=== PATIENT | male | born 1965 | race Caucasian/White ===

== ENCOUNTER 2023-10-03 10:40 | Observation (INO) | payer BC ==
[2023-10-03 11:16] LABS: #Basophils 0.1 thou/uL (0.0-0.2); #Eosinphils 0.1 thou/uL (0.0-0.7); #Monocytes 0.6 thou/uL (0.11-0.59); #Neutrophils 3.4 thou/uL (1.40-6.50); %Basophils 1.6 % (0.0-1.0); %Eosinophils 1.3 % (0.0-10.0); %Lymphocytes 34.8 % (21.0-51.0); %Monocytes 9.6 % (0.0-10.0); %Neutrophils 52.4 % (42.0-75.0); Hematocrit 40.2 % (42.0-52.0); Hemoglobin 14.3 g/dL (14.0-18.0); Mean Corpuscular HGB CONC 35.6 g/dL (32.0-36.0); Mean Corpuscular Hemoglobin 32.9 pg (27.0-31.0); Mean Corpuscular Volume 92.6 fl (78.0-98.0); Mean Platelet Volume 9.7 fL (7.4-10.4); Platelet Count 156 10x3/uL (130-400); Red Blood Cell (RBC) Count 4.34 mill/uL (4.70-6.10); White Blood Cell (WBC) Count 6.4 10x3/uL (4.8-10.8)
[2023-10-03 11:40] LABS: ALT (SGPT) 41 U/L (8-55); AST (SGOT) 51 U/L (5-34); Albumin 3.5 g/dL (3.5-5.0); Alkaline Phosphatase 55 U/L (40-110); Anion Gap 19 mmol/L (10-20); BUN (Urea Nitrogen) 5 mg/dL (8.4-25.7); Calc. Creatinine Clearance 0 mL/min (70-130); Calcium 7.6 mg/dL (7.8-10.44); Carbon Dioxide 18 mmol/L (22-29); Chloride 95 mmol/L (98-107); Estimated GFR 105; Globulin 3.1 g/dL (2.4-3.5); Glucose 91 mg/dL (70-105); Magnesium 1.8 mg/dL (1.6-2.6); Protein, Total 6.6 g/dL (6.0-8.3); Sodium 129 mmol/L (136-145)
[2023-10-03 11:45] LABS: Troponin I Less than 0.010 ng/mL (< 0.028)
[2023-10-03] MEDS ORDERED: Potassium Chloride 20 MEQ TAB ONE (12:45)
[2023-10-03] MEDS ORDERED: Magnesium 2 GM/50 ML BAG (IN WATER) ONE (12:52)
[2023-10-03 14:34] LABS: Troponin I Less than 0.010 ng/mL (< 0.028)
[2023-10-03] MEDS ORDERED: Acetaminophen 325 MG TAB PO PRN (14:53)
[2023-10-03] MEDS ORDERED: Multivit, Therapeutic 1 TAB PO SCH (15:00)
[2023-10-03] MEDS ORDERED: Folic Acid 1 MG TAB PO SCH (15:00)
[2023-10-03] MEDS ORDERED: Sodium Chloride 0.9% 1,000 ML IV SCH (15:00)
[2023-10-03] MEDS ORDERED: Electrolyte Replacement Protocol 1 EACH FS SCH (15:00)
[2023-10-03] MEDS ORDERED: Electrolyte Replacement Protocol FS PRN (15:15)
[2023-10-03] MEDS: Thiamine HCl 200 MG/2 ML VIAL SLOW IVP SCH (16:01)
[2023-10-03] MEDS: Multivit, Therapeutic 1 TAB PO SCH (16:02)
[2023-10-03 16:38] LABS: Potassium 3.4 mmol/L (3.5-5.1)
[2023-10-03 16:49] LABS: Troponin I Less than 0.010 ng/mL (< 0.028)
[2023-10-03] MEDS ORDERED: Promethazine HCl 12.5 MG in Sodium Chloride 0.9% 50 ML IVPB PRN (16:50)
[2023-10-03 18:17] VITALS: BMI 25.4
[2023-10-03] MEDS ORDERED: hydrALAZINE 20 MG/ML VIAL SLOW IVP PRN ×2 (18:49→18:53)
[2023-10-03] MEDS ORDERED: Lorazepam 1 MG TAB PO PRN (21:05)
[2023-10-03] MEDS: Famotidine 20 MG TAB PO SCH (21:19)
[2023-10-03] MEDS ORDERED: Potassium Chloride 20 MEQ TAB PO SCH (21:30)
[2023-10-04 04:54] LABS: #Basophils 0.1 thou/uL (0.0-0.2); #Eosinphils 0.1 thou/uL (0.0-0.7); #Monocytes 0.8 thou/uL (0.11-0.59); #Neutrophils 4.4 thou/uL (1.40-6.50); %Basophils 1.2 % (0.0-1.0); %Eosinophils 1.3 % (0.0-10.0); %Lymphocytes 29.8 % (21.0-51.0); %Monocytes 9.8 % (0.0-10.0); %Neutrophils 57.6 % (42.0-75.0); Hematocrit 38.5 % (42.0-52.0); Hemoglobin 13.9 g/dL (14.0-18.0); Mean Corpuscular HGB CONC 36.1 g/dL (32.0-36.0); Mean Corpuscular Hemoglobin 33.3 pg (27.0-31.0); Mean Corpuscular Volume 92.1 fl (78.0-98.0); Mean Platelet Volume 10.5 fL (7.4-10.4); Platelet Count 142 10x3/uL (130-400); Red Blood Cell (RBC) Count 4.18 mill/uL (4.70-6.10); White Blood Cell (WBC) Count 7.7 10x3/uL (4.8-10.8)
[2023-10-04 04:57] LABS: Anion Gap 13 mmol/L (10-20); BUN (Urea Nitrogen) 5 mg/dL (8.4-25.7); Calc. Creatinine Clearance 118 mL/min (70-130); Carbon Dioxide 21 mmol/L (22-29); Chloride 98 mmol/L (98-107); Estimated GFR 106; Glucose 76 mg/dL (70-105); Magnesium 2.2 mg/dL (1.6-2.6); Sodium 128 mmol/L (136-145)
[2023-10-04] MEDS: Famotidine 20 MG TAB PO SCH ×2 (08:47→20:44)
[2023-10-04] MEDS: Multivit, Therapeutic 1 TAB PO SCH (08:48)
[2023-10-04] MEDS: Folic Acid 1 MG TAB PO SCH (08:48)
[2023-10-04] MEDS ORDERED: Losartan 25 MG TAB PO SCH (10:15)
[2023-10-04] MEDS ORDERED: chlordiazePOXIDE HCl 25 MG CAP PO SCH (11:00)
[2023-10-04 12:45] LABS: Phosphorus 1.6 mg/dL (2.3-4.7)
[2023-10-04 12:48] LABS: ALT (SGPT) 36 U/L (8-55); AST (SGOT) 40 U/L (5-34); Albumin 3.7 g/dL (3.5-5.0); Alkaline Phosphatase 64 U/L (40-110); Bilirubin, Direct 0.6 mg/dL (0.1-0.3); Bilirubin, Total 1.5 mg/dL (0.2-1.2); Protein, Total 6.9 g/dL (6.0-8.3)
[2023-10-04 13:07] LABS: HBSAg Index 0.18 S/CO (0-0.99); Hep B Surf Ag Non-Reactive S/CO (NonReactive); Hep C IgG Ab Non-Reactive S/CO (NonReactive)
[2023-10-04 13:09] LABS: Hep A IgM AB Non-Reactive S/CO (NonReactive); Hep A IgM S/CO 0.21 S/CO (0-0.79)
[2023-10-04 13:10] LABS: HBCM Index 0.08 S/CO (0-0.79); Hepatitis B Core IgM Abs Non-Reactive S/CO (NonReactive)
[2023-10-04] MEDS ORDERED: Lorazepam 1 MG TAB PO PRN (14:53)
[2023-10-04] MEDS: chlordiazePOXIDE HCl 25 MG CAP PO SCH ×2 (16:02→20:44)
[2023-10-04] MEDS: Thiamine HCl 200 MG/2 ML VIAL SLOW IVP SCH (16:02)
[2023-10-04] MEDS: PHOS-NAK 1 PKT PACK PO SCH ×2 (16:02→20:44)
[2023-10-05 05:28] LABS: #Basophils 0.1 thou/uL (0.0-0.2); #Eosinphils 0.3 thou/uL (0.0-0.7); #Monocytes 0.8 thou/uL (0.11-0.59); #Neutrophils 4.8 thou/uL (1.40-6.50); %Basophils 1.7 % (0.0-1.0); %Lymphocytes 28.9 % (21.0-51.0); %Neutrophils 57.3 % (42.0-75.0); Hematocrit 41.6 % (42.0-52.0); Hemoglobin 14.4 g/dL (14.0-18.0); Mean Corpuscular HGB CONC 34.6 g/dL (32.0-36.0); Mean Corpuscular Hemoglobin 32.1 pg (27.0-31.0); Mean Corpuscular Volume 92.9 fl (78.0-98.0); Mean Platelet Volume 10.9 fL (7.4-10.4); Platelet Count 135 10x3/uL (130-400); Red Blood Cell (RBC) Count 4.48 mill/uL (4.70-6.10); White Blood Cell (WBC) Count 8.3 10x3/uL (4.8-10.8)
[2023-10-05 06:00] LABS: ALT (SGPT) 39 U/L (8-55); AST (SGOT) 47 U/L (5-34); Albumin 3.8 g/dL (3.5-5.0); Alkaline Phosphatase 64 U/L (40-110); Anion Gap 17 mmol/L (10-20); BUN (Urea Nitrogen) 7 mg/dL (8.4-25.7); Bilirubin, Total 1.1 mg/dL (0.2-1.2); Calc. Creatinine Clearance 110 mL/min (70-130); Calcium 8.6 mg/dL (7.8-10.44); Carbon Dioxide 19 mmol/L (22-29); Chloride 99 mmol/L (98-107); Estimated GFR 104; Globulin 3.6 g/dL (2.4-3.5); Glucose 85 mg/dL (70-105); Magnesium 2.2 mg/dL (1.6-2.6); Phosphorus 2.8 mg/dL (2.3-4.7); Potassium 4.2 mmol/L (3.5-5.1); Protein, Total 7.4 g/dL (6.0-8.3); Sodium 131 mmol/L (136-145)
[2023-10-05 08:39] VITALS: TEMP 98.1
[2023-10-05] MEDS ORDERED: Losartan 25 MG TAB PO SCH (09:00)
[2023-10-05] MEDS: chlordiazePOXIDE HCl 25 MG CAP PO SCH (09:20)
[2023-10-05] MEDS: Folic Acid 1 MG TAB PO SCH (09:20)
[2023-10-05] MEDS: PHOS-NAK 1 PKT PACK PO SCH (09:21)
[2023-10-05] MEDS: Multivit, Therapeutic 1 TAB PO SCH (09:21)
[2023-10-05] MEDS: Famotidine 20 MG TAB PO SCH (09:21)
[2023-10-05 14:27] VITALS: BP 155/83
[2023-10-06] MEDS ORDERED: Thiamine 100 MG TAB PO SCH (09:00)
[2023-10-06] MEDS ORDERED: FLU VACC QS2023-24(6MOS UP)/PF 60 MCG/0.5 ML SYRINGE IM ONE (09:00)
== END 2023-10-05 11:45 | disposition home or self-care (01) ==
LOC: ERS 10:40 → 2SW 14:39
PROVIDERS: ADMIT Internal Medicine; ATTEND Internal Medicine
PROC: B246ZZZ Ultrasonography of Right and Left Heart (ICD-10-PCS; principal; 2023-10-03)
DX: R55 Syncope and collapse (principal); I10 Essential (primary) hypertension; R74.01 Elevation of levels of liver transaminase levels; E87.6 Hypokalemia; E87.1 Hypo-osmolality and hyponatremia; F10.130 Alcohol abuse with withdrawal, uncomplicated; Z90.49 Acquired absence of other specified parts of digestive tract; Z87.891 Personal history of nicotine dependence; Z79.899 Other long term (current) drug therapy
CPT/HCPCS: 36415; 71045; 76705; 80048; 80053; 80074; 80076; 82248; 83735; 83880; 84100; 84443; 84484; 85025; 93005; 93010; 93306; 94760; 96365; 96375; 96376; G0378; J3411; J3475; J7050